=== PATIENT | male | born 1945 | race Caucasian/White ===

== ENCOUNTER → 2017-01-08 | Day surgery (SDC) | payer BC ==
[2016-12-26 11:09] VITALS: Ht 177.8 cm; Wt 68.2 kg
[~2017-01-08] VITALS: Ht 177.8 cm; Wt 68.2 kg
[~2017-01-08] MED LIST: CIPR-255 PO; IBUPROFEN 600 MG TAB PO PRN; LIDOCAINE HCL 1% 20 ML VIAL ONE; LIDOCAINE MPF 1% INJ 30 ML SDV (L&D) INFIL ONE; VNTHFA/IN INH
--- NOTE | 2017-01-08 10:59 | History & Physical Bridge - [place] ---
H&P Re-Evaluation Bridge Note: I have examined the patient, reviewed the History & Physical and in the interval since the performance of the History & Physical I have noted the following changes of clinical significance: No changes noted pt is strict local and ASA 3
[2017-01-08 11:42] VITALS: TEMP 37
--- NOTE | 2017-01-08 11:44 | [facility] Operative Report ---
Operative Report Operative Date Jan 08, 2017. Pre-Operative Diagnosis Sebaceous Cyst Back Post-Operative Diagnosis same Procedure(s) Performed excision karl cyst on back Surgeon Dr. Esquivel Policy Loan Calculator Surgeon(s) None Estimated Blood Loss 20 ml Findings 3 cm cyst, 5 cm incision Specimens A.) Sebaceous Cyst On Back Anesthesia local Complication(s) None Disposition Recovery Room / PACU I attest to the content of the Intraoperative Record and any orders documented therein. Any exceptions are noted below.
--- NOTE | 2017-01-08 11:47 | Discharge Instructions-SurgCtr ---
Discharge Instructions Visit Reason for Visit: Sebaceous Cyst, Back Discharge Discharge Diagnosis / Problem: sebaceous cyst Discharge Goals Goal(s): Decrease discomfort, Improve function, Improve disease control Activity Recommendations Lifting Limitations: gradually increase as tolerated Exercise/Sports Limitations: until after follow-up appointment May Resume Sexual Activity: when tolerated Shower/Bathe: tomorrow Driving or Machine Use: no limitations SPECIAL CARE INSTRUCTIONS: * Cover incisions and change daily for comfort/drainage. * May use ibuprofen for pain as tolerated. * Expect some swelling and bruising. Call your doctor if: * Temperature above 101 degrees * Pain not relieved by pain medicine ordered * There is increased drainage or redness from any incision * You have any unanswered questions or concerns [phone]. FOLLOW UP VISIT: If not already scheduled, please call the office for a follow-up visit. for 2 weeks- some sutures OFFICE PHONE NUMBER: Dr. Esquivel Office Anesthesia . Post Anesthesia Instructions: If you have had General Anesthesia or IV Sedation: * Do not drive today. * Resume driving when surgeon permits. * Do not make important decisions or sign legal documents today. * Call surgeon for: 1. Temperature elevations greater than 101 degrees F. 2. Uncontrollable pain. 3. Excessive bleeding. 4. Persistent nausea and vomiting. 5. Medication intolerance (nausea, vomiting or rash). * For nausea and vomiting use only clear liquids such as: tea, soda, bouillon until nausea subsides, then gradually increase diet as tolerated. * If you have any concerns or questions, call your surgeon's office. If physician is unavailable and it is an emergency, call 911 or go to the nearest emergency room. . Diet Recommendations Home Diet: resume previous diet Procedures Procedures Performed: Sebaceous Cyst Excision on Back Pending Studies Studies pending at discharge: no Medical Emergencies . Who to Call and When: Medical Emergencies: If at any time you feel your situation is an emergency, please call 911 immediately. . Non-Emergent Contact Non-Emergency issues call your: Surgeon . . "Provider Documentation" section prepared by Hari Esquivel.
[2017-01-08 12:06] VITALS: BP 164/79; PULSE 85; O2SAT 95
--- NOTE | 2017-01-08 12:13 | OPERATIVE REPORT ---
DATE OF OPERATION: 01/08/2017 PREOPERATIVE DIAGNOSIS: Sebaceous cyst. POSTOPERATIVE DIAGNOSIS: Same. NAME OF OPERATION: Excision of sebaceous cyst from the back. STAFF SURGEON: Dr. Esquivel. ANESTHESIA: 1% plain lidocaine. PROCEDURE: The patient was brought in the operating room and placed on the operating table in the prone position. His back was prepped and draped in usual fashion around a cyst which was in the mid upper back. The cyst was relatively large, approximately 3 cm. Using 1% plain lidocaine, skin and subcutaneous tissue were anesthetized. Elliptical incision made over the cyst approximately 5 cm in length, carrying dissection down around the cyst. The cyst did rupture during the operation and there were no apparent purulent fluid. The entire cyst was excised down to the fascia. At this point, the deep tissue was reapproximated using 2-0 chromic catgut suture then the skin reapproximated using both 3-0 and 4-0 nylon suture. Dressing applied and patient transferred to recovery room in stable condition. I attest to the content of the Intraoperative Record and any orders documented therein. Any exceptio ns are noted below.
== END | disposition home or self-care (01) ==
LOC: X.SURG 09:48
PROVIDERS: ATTEND Surgery
DX: L72.3 Sebaceous cyst (principal); J45.909 Unspecified asthma, uncomplicated; J44.9 Chronic obstructive pulmonary disease, unspecified; C61 Malignant neoplasm of prostate; F17.210 Nicotine dependence, cigarettes, uncomplicated; Z88.0 Allergy status to penicillin

== ENCOUNTER → 2017-02-26 | Outpatient (CLI) | payer BC ==
[~2017-02-26] MED LIST changes: -IBUPROFEN 600 MG TAB PO PRN; -LIDOCAINE HCL 1% 20 ML VIAL ONE; -LIDOCAINE MPF 1% INJ 30 ML SDV (L&D) INFIL ONE
== END | disposition home or self-care (01) ==
LOC: C.LABBC 09:27
PROVIDERS: ATTEND Urology
DX: C61 Malignant neoplasm of prostate (principal)

== ENCOUNTER → 2018-01-15 | Outpatient (CLI) | payer BC ==
[2018-01-15 16:52] LABS: HEMOGLOBIN 14.8 g/dL (14.0-18.0); MEAN CELL VOLUME 97.3 fL (80-100); MEAN CORPUSCULAR HEMOGLOBIN 33.5 pg (25-34); MEAN CORPUSCULAR HGB CONC 34.4 g/dl (32-36); MEAN PLATELET VOLUME 10.1 fL (7.4-10.4); PLATELET COUNT 235 K/uL (130-400); RED CELL DISTRIBUTION WIDTH CV 13.3 % (11.5-14.5); RED CELL DISTRIBUTION WIDTH SD 47.1 fL (36.4-46.3); WHITE BLOOD COUNT 7.21 K/uL (4.8-10.8)
[2018-01-15 17:01] LABS: ALBUMIN 3.6 gm/dl (3.4-5.0); ALT/SGPT 24 U/L (12-78); BLOOD UREA NITROGEN 15 mg/dl (7-18); CALCIUM 9.1 mg/dl (8.5-10.1); CARBON DIOXIDE 30 mmol/L (21-32); CREATININE 1.01 mg/dl (0.60-1.40); GLUCOSE 91 mg/dl (70-99); POTASSIUM 4.4 mmol/L (3.5-5.1); SODIUM 136 mmol/L (136-145)
[2018-01-15 17:08] LABS: ALKALINE PHOSPHATASE 86 U/L (45-117); AST/SGOT 13 U/L (15-37); TOTAL PROTEIN 7.5 gm/dl (6.4-8.2)
== END | disposition home or self-care (01) ==
LOC: C.LABBC 14:27
PROVIDERS: ATTEND Internal Medicine
DX: C61 Malignant neoplasm of prostate (principal)